=== PATIENT | male | born 2000 | race Caucasian/White ===

== ENCOUNTER 2021-08-15 19:32 | Emergency (ER) | payer OTHER ==
[2021-08-15] MEDS ORDERED: NAPROXEN500 MG PO (21:55)
[2021-08-15] MEDS ORDERED: BACLOFEN 10MG T10 MG PO (21:55)
== END 2021-08-15 22:15 | disposition home or self-care (01) ==
LOC: FER 19:32
DX: M54.50 Low back pain, unspecified (principal); M79.652 Pain in left thigh; V49.40XA Driver injured in collision with unspecified motor vehicles in traffic accident, initial encounter
CPT/HCPCS: 72100; 73552; 96372; J1100; J1885